=== PATIENT | female | born 1955 | race Caucasian/White ===

== ENCOUNTER 2016-10-25 09:03 | Emergency (ER) | payer MEDICARE, MEDICAID ==
[~2016-10-25] VITALS: Ht 157.5 cm; Wt 76.1 kg
[~2016-10-25 09:03] MED LIST: ALBU18HF INH; AZIT250T PO; CEFD300C37 PO; CHOL100011 PO; CLON2TAB PO; CLON2TAB16 PO; CLON2TAB2 PO; CYAN100063 PO; DICL25TA PO; DONE5TAB30 PO; DOXY100T PO; FLUO20CA19 PO; GABA-827 PO; GABA800T2 PO; HYDR-3138 PO; HYDR-3240 PO; HYDR-3307 PO; HYDR1TAB12; LEVO500T33 PO; LEVO750T26 PO; LISI-167 PO; NICO1PAT4 TD; Nicotine TD; OMEP40CA6 PO; OXYC-229 PO; PRED10TA14 PO; PREG150C PO; PREG25CA PO; PROM12.55 PO; SERT25TA PO; SERT50TA5 PO; TIZA6CAP PO; TRAM50TA2 PO; TRAZ50TA18 PO; ZOLP-413 PO; ZOLP12.52 PO; ZOLP6.252 PO
[2016-10-25] MEDS ORDERED: ONDANSETRON 2MG/ML, 2ML ONE (10:23)
[2016-10-25] MEDS ORDERED: MORPHINE SULFATE 4 MG/ML, 1ML ONE (10:23)
[2016-10-25] MEDS ORDERED: FAMOTIDINE 20 MG/2 ML ONE (10:23)
[2016-10-25] MEDS ORDERED: SODIUM CHLORIDE 0.9% 1,000ML IVBOLUS ONE (10:30)
[2016-10-25] MEDS ORDERED: FAMOTIDINE 20 MG/2 ML IVP ONE (10:30)
[2016-10-25] MEDS ORDERED: MORPHINE SULFATE 4 MG/ML, 1ML IVPush PRN (10:30)
[2016-10-25] MEDS ORDERED: ONDANSETRON 2MG/ML, 2ML IVPush ONE (10:30)
[2016-10-25 11:09] LABS: IS PT STATUS REG ER OR PRE ER? YES
[2016-10-25 11:13] LABS: ASPARTATE AMINO TRANSFERASE 17 U/L (15-37); BLOOD UREA NITROGEN 9 mg/dL (7-18)
[2016-10-25] MEDS ORDERED: POTASSIUM CHLORIDE 20 MEQ TAB.ER.PRT ONE (13:16)
[2016-10-25 13:24] VITALS: BP 151/94
[2016-10-25] MEDS ORDERED: POTASSIUM CHLORIDE 20 MEQ TAB.ER.PRT PO ONE (14:00)
== END 2016-10-25 14:05 | disposition home or self-care (01) ==
LOC: ED 10:55
DX: K52.9 Noninfective gastroenteritis and colitis, unspecified (principal); E87.6 Hypokalemia; J44.9 Chronic obstructive pulmonary disease, unspecified; I12.9 Hypertensive chronic kidney disease with stage 1 through stage 4 chronic kidney disease, or unspecified chronic kidney disease; E11.22 Type 2 diabetes mellitus with diabetic chronic kidney disease; N18.2 Chronic kidney disease, stage 2 (mild); Z90.49 Acquired absence of other specified parts of digestive tract; Z87.891 Personal history of nicotine dependence
CPT/HCPCS: 36415; 74020; 80053; 81001; 84484; 85025; 93005; 96361; 96374; 96375; 99285; J2405; J7030; S0028

== ENCOUNTER 2016-11-16 01:19 | Emergency (ER) | payer MEDICARE, MEDICAID ==
[~2016-11-16] VITALS: Ht 154.9 cm; Wt 79.8 kg
[2016-11-16] MEDS ORDERED: ONDANSETRON 2MG/ML, 2ML ONE (01:54)
[2016-11-16] MEDS ORDERED: SODIUM CHLORIDE 0.9% 1,000ML IVBOLUS ONE (02:00)
[2016-11-16] MEDS ORDERED: ONDANSETRON 2MG/ML, 2ML IVPush ONE (02:00)
[2016-11-16] MEDS ORDERED: MORPHINE SULFATE 4 MG/ML, 1ML ONE ×2 (02:08→03:36)
[2016-11-16] MEDS ORDERED: FAMOTIDINE 20 MG/2 ML ONE (02:09)
[2016-11-16] MEDS: MORPHINE SULFATE 4 MG/ML, 1ML IVPush PRN ×2 (02:12→03:38)
[2016-11-16 02:24] LABS: ASPARTATE AMINO TRANSFERASE 16 U/L (15-37); BLOOD UREA NITROGEN 16 mg/dL (7-18)
[2016-11-16 02:29] LABS: IS PT STATUS REG ER OR PRE ER? YES
[2016-11-16] MEDS ORDERED: FAMOTIDINE 20 MG/2 ML IVP ONE (02:30)
[2016-11-16] MEDS ORDERED: OMNIPAQUE 350 MG/ML, 100ML BOTTLE ONE (02:53)
[2016-11-16 03:25] VITALS: BP 145/92
== END 2016-11-16 04:15 | disposition home or self-care (01) ==
LOC: ED 02:19
DX: A09 Infectious gastroenteritis and colitis, unspecified (principal); K21.0 Gastro-esophageal reflux disease with esophagitis; I12.9 Hypertensive chronic kidney disease with stage 1 through stage 4 chronic kidney disease, or unspecified chronic kidney disease; E11.22 Type 2 diabetes mellitus with diabetic chronic kidney disease; N18.2 Chronic kidney disease, stage 2 (mild); J44.9 Chronic obstructive pulmonary disease, unspecified; M54.9 Dorsalgia, unspecified; G89.29 Other chronic pain; M54.30 Sciatica, unspecified side; Z90.49 Acquired absence of other specified parts of digestive tract; Z87.891 Personal history of nicotine dependence
CPT/HCPCS: 36415; 74177; 80053; 81001; 83690; 84484; 85025; 87086; 96361; 96374; 96375; 96376; 99285; J2405; J7030; Q9967; S0028

== ENCOUNTER 2016-11-23 04:08 | Emergency (ER) | payer MEDICARE, MEDICAID ==
[~2016-11-23] VITALS: Ht 157.5 cm; Wt 78.9 kg
[2016-11-23] MEDS ORDERED: SERT25TA PO (04:22)
[2016-11-23] MEDS ORDERED: CIPR500T87 PO (04:22)
[2016-11-23] MEDS ORDERED: METR500T PO (04:23)
[2016-11-23] MEDS ORDERED: ONDA4TAB13 SL (04:24)
[2016-11-23] MEDS ORDERED: ONDANSETRON 2MG/ML, 2ML ONE (04:52)
[2016-11-23] MEDS ORDERED: FAMOTIDINE 20 MG/2 ML ONE (04:52)
[2016-11-23] MEDS ORDERED: MAALOX/HYOSCYAMINE/LIDOCAINE 45 ML BOTTLE ONE (04:52)
[2016-11-23] MEDS ORDERED: SODIUM CHLORIDE 0.9% 1,000ML IVBOLUS ONE (05:00)
[2016-11-23] MEDS ORDERED: ONDANSETRON 2MG/ML, 2ML IVPush ONE (05:00)
[2016-11-23] MEDS ORDERED: MAALOX/HYOSCYAMINE/LIDOCAINE 45 ML BOTTLE PO ONE (05:00)
[2016-11-23] MEDS ORDERED: FAMOTIDINE 20 MG/2 ML IVP ONE (05:00)
[2016-11-23 05:28] LABS: BLOOD UREA NITROGEN 15 mg/dL (7-18)
[2016-11-23 05:31] LABS: ASPARTATE AMINO TRANSFERASE 13 U/L (15-37)
[2016-11-23] MEDS ORDERED: MORPHINE SULFATE 4 MG/ML, 1ML ONE (05:38)
[2016-11-23] MEDS ORDERED: MORPHINE SULFATE 4 MG/ML, 1ML IVPush PRN (06:00)
[2016-11-23 06:01] VITALS: BP 145/94
== END 2016-11-23 06:13 | disposition home or self-care (01) ==
LOC: ED 05:38
DX: R11.2 Nausea with vomiting, unspecified (principal); I12.9 Hypertensive chronic kidney disease with stage 1 through stage 4 chronic kidney disease, or unspecified chronic kidney disease; K21.9 Gastro-esophageal reflux disease without esophagitis; N18.2 Chronic kidney disease, stage 2 (mild)
CPT/HCPCS: 36415; 80053; 83690; 85025; 93005; 96361; 96374; 96375; 99285; J2405; J7030; S0028

== ENCOUNTER 2016-11-25 10:16 | Emergency (ER) | payer MEDICARE, MEDICAID ==
[~2016-11-25] VITALS: Ht 157.5 cm; Wt 72.7 kg
[~2016-11-25 10:16] MED LIST changes: +CIPR500T87 PO; +METR500T PO; +ONDA4TAB13 SL
[2016-11-25 10:17] VITALS: BP 99/65
[2016-11-25] MEDS ORDERED: HYDROmorphone 1 MG/ML, 1ML IM ONE (11:00)
[2016-11-25] MEDS ORDERED: HYDROmorphone 1 MG/ML, 1ML ONE ×2 (11:08→12:34)
== END 2016-11-25 12:37 | disposition home or self-care (01) ==
LOC: ED 11:05
DX: R11.2 Nausea with vomiting, unspecified (principal); M51.36 Other intervertebral disc degeneration, lumbar region; M51.26 Other intervertebral disc displacement, lumbar region; I12.9 Hypertensive chronic kidney disease with stage 1 through stage 4 chronic kidney disease, or unspecified chronic kidney disease; E87.6 Hypokalemia; Z90.49 Acquired absence of other specified parts of digestive tract; Z87.891 Personal history of nicotine dependence; Z88.1 Allergy status to other antibiotic agents; E11.9 Type 2 diabetes mellitus without complications
CPT/HCPCS: 93005; 96372; 99283; J1170